=== PATIENT | male | born 1955 | race Caucasian/White ===

== ENCOUNTER → 2016-06-30 | Outpatient (CLI) | payer BC, OTHER ==
[~2016-06-30] VITALS: Ht 172.7 cm; Wt 107.0 kg
[~2016-06-30] MED LIST: ASA5UEC PO; COQ-10100 MG PO; CRESTOR10 MG PO; CRESTOR20 MG PO; EFFIENT10 MG PO; FISH OIL 1,001000 M2 PO; GLIPIZIDE 10 MG10 MG PO; GLUMETZA500 PO; JANUVIA100 MG PO; PIOGLITAZONE15 MG PO; TOPROL XL25 MG PO; VITAMIN D1000 UNI1 PO; ZESTRIL5 MG PO
--- NOTE | ~2016-06-30 | CATHLAB ---
[facility] [place] [address] INVASIVE PROCEDURE REPORT Name: AMENAPHIL [id number] Admission: 06/30/16 Attend Phys: Srinivas Stevens MD Discharge: Date of : 57 Date of Service: 06/30/16 1449 Report #: [id number] THIS REPORT FOR: //name// CC: Maryan Stevens DATE OF SERVICE: 06/30/2016 INDICATIONS: Unstable angina Full risks, benefits and alternatives of cardiac catheterization were explained to the patient. All questions were answered. Informed consent was obtained. A Barbeau test was performed on the right radial artery. The right wrist area was prepped and draped in a sterile manner. A 5-Lith[place]ian sheath was inserted into the right radial artery via modified Seldinger technique. Nitroglycerin and verapamil was injected through the sheath. 5000 units of heparin was given through peripheral IV. CORONARY ANATOMY: 1. The left main is a short segment. 2. The LAD is a moderate sized caliber vessel, travelling down the anterior wall and wrapping around the apex. There is a stent in the mid segment, patent with mild restenosis, 20%. 3. The left circumflex artery is a moderate size caliber vessel, codominant. There is a stent in the mid segment of the left circumflex artery, patent with mild restenosis, 20%. 4. There is a subtotal occlusion of the distal left circumflex, unchanged from prior procedures. There is collateral filling of distal obtuse marginal artery. There are multiple obtuse marginal arteries, with mild disease. 5. The RCA supplies the PDA. The RCA has a total occlusion in the mid segment. The PDA is filled via collateral circulation from the left coronary artery. This is unchanged from prior procedures A left ventriculogram was performed revealing mild to moderate LV dysfunction, ejection fraction of 40-45%. There is severe hypokinesis of the mid to basal inferior wall. The LVEDP is approximately 21 mmHg. There is no gradient across the outflow tract. IMPRESSION: 1. Patent stents in the mid LAD and mid left circumflex. 2. 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 This is unchanged from prior cardiac catheterizations. [address] [address] INVASIVE PROCEDURE REPORT Name: PHIL BECKWITH Room #: REG [facility]#: [id number] Admission: 06/30/16 Attend Phys: Srinivas Stevens MD Discharge: Date of : 57 Date of Service: 06/30/16 1449 Report #: [id number] 3. Mild to moderate LV dysfunction. 4. Recommend medical therapy. <ELECTRONICALLY SIGNED> By: Srinivas Stevens MD 07/01/16 0758 1449 1501 Srinivas Stevens MD /bryant
[2016-06-30 11:08] VITALS: BP 141/77
[2016-06-30 11:29] LABS: HEMATOCRIT 43.1 % (42.0-52.0); HEMOGLOBIN 15.1 gm/dL (14.0-18.0); MCH 31.9 pg (26.0-34.0); RBC 4.74 mil/uL (4.50-6.00); RDW 12.7 % (10.5-14.5)
[2016-06-30 11:40] LABS: ANION GAP 6 mmol/L (7-16); BUN 12 mg/dL (7-18); CALCIUM 9.1 mg/dL (8.5-10.1); CHLORIDE 104 mmol/L (98-107); CO2 29 mmol/L (21-32); CREATININE 0.9 mg/dL (0.6-1.3); GLUCOSE 159 mg/dL (70-99); POTASSIUM 4.3 mmol/L (3.5-5.1); SODIUM 139 mmol/L (136-145)
[2016-06-30 11:45] LABS: CHOLESTEROL 95 mg/dL (<200); HDL CHOLESTEROL 36 mg/dL (>40); LDL CHOLESTEROL 48 mg/dL (<100); TC:HDL 2.6 Ratio (Not establshd); TRIGLYCERIDE 56 mg/dL (<150); VLDL 11 mg/dL (<40)
== END | disposition home or self-care (01) ==
LOC: CATH 09:55
PROVIDERS: Internal Medicine Cardiovascular Disease
DX: I25.10 Atherosclerotic heart disease of native coronary artery without angina pectoris (principal); I50.1 Left ventricular failure, unspecified